=== PATIENT | female | born 1960 | race Caucasian/White ===

== ENCOUNTER 2017-02-26 10:46 | Outpatient (CLI) | payer OTHER ==
--- NOTE | 2017-02-26 12:05 | MMO ---
BILATERAL SCREENING MAMMOGRAMS: Date: 02/26/17 Comparison made to prior exams from 2014 and 2015. This patient's mammogram was interpreted with the assistance of computer-aided detection. FINDINGS: Heterogeneously dense glandular pattern. No evidence of mass or distortion. No interval change noted. Recommend one year follow-up. IMPRESSION: BIRADS 1: Negative POS: ART[facility]
== END 2017-02-26 10:47 | disposition home or self-care (01) ==
LOC: MAMMO 10:46
PROVIDERS: ATTEND Obstetrics & Gynecology
DX: Z12.31 Encounter for screening mammogram for malignant neoplasm of breast (principal)
CPT/HCPCS: 77067; G0202

== ENCOUNTER 2018-04-10 12:07 | Outpatient (CLI) | payer OTHER | END 2018-04-10 12:08 | disposition home or self-care (01) | LOC: BICMAMMO 12:07 | PROVIDERS: ATTEND Obstetrics & Gynecology | DX: Z12.31 Encounter for screening mammogram for malignant neoplasm of breast (principal); Z80.3 Family history of malignant neoplasm of breast | CPT/HCPCS: 77063; 77067 ==

== ENCOUNTER 2019-05-10 10:22 | Outpatient (CLI) | payer OTHER ==
--- NOTE | 2019-05-10 11:36 | BD ---
EXAM: Bone densitometry using DEXA HISTORY: 58 yo female. Screening for postmenopausal osteoporosis FINDINGS: L1--bone mineral density 0.710 g/sq cm; T score -2.5 ; Z score -1.5 L2--bone mineral density 0.821 g/sq cm; T score -1.9 ; Z score -0.7 L3--bone mineral density 0.839 g/sq cm; T score -2.2 ; Z score -1.0 L4--bone mineral density 0.827 g/sq cm; T score -2.1 ; Z score -0.9 Total L1-L4--bone mineral density 0.801 g/sq cm; T score -2.2 ; Z score -1.1 Left femoral neck--bone mineral density0.662; T score -1.7 ; Z score -0.6 Total proximal left femur--bone mineral density 0.953; T score 0.1 ; Z score 0.9 There has been an interval reduction of 8% in the BMD of the lumbar spine and a reduction of 4.1% i n the BMD of the proximal femur since the previous study of 07/30/2016. The 10 year fracture risk for a major osteoporotic fracture is 6.7% and for a hip fracture is 0.6%. IMPRESSION: Osteopenia
--- NOTE | 2019-05-13 13:28 | MMO ---
Bilateral MAMMO Bilat Screen [facility]. CLINICAL HISTORY: Patient is 58 years old and is seen for screening. The patient has the following family history of breast cancer: maternal aunt, at age 90, GREAT. The patient has no personal history of cancer. VIEWS: The views performed were: bilateral craniocaudal with tomosynthesis; bilateral mediolateral oblique with tomosynthesis; and right mediolateral oblique. FILMS COMPARED: The present examination has been compared to prior imaging studies performed at [facility] [place] on 02/11/2015, 01/25/2016 and 04/10/2018. This study has been interpreted with the assistance of computer-aided detection. MAMMOGRAM FINDINGS: The breasts are heterogeneously dense, which could obscure a lesion on mammography. There are no suspicious masses, suspicious calcifications, or new areas of architectural distortion. IMPRESSION: THERE IS NO MAMMOGRAPHIC EVIDENCE OF MALIGNANCY. A ROUTINE FOLLOW-UP MAMMOGRAM IN 1 YEAR IS RECOMMENDED. THE RESULTS OF THIS EXAM WERE SENT TO THE PATIENT. ACR BI-RADS Category 1 - Negative MAMMOGRAPHY NOTE: 1. A negative mammogram report should not delay a biopsy if a dominant of clinically suspicious mass is present. 2. Approximately 10% to 15% of breast cancers are not detected by mammography. 3. Adenosis and dense breasts may obscure an underlying neoplasm. Reported by: SOFIA DE SANTIAGO MD Electonically Signed: [id number]
== END 2019-05-10 10:23 | disposition home or self-care (01) ==
LOC: BICMAMMO 10:22
PROVIDERS: ATTEND Obstetrics & Gynecology
DX: Z12.31 Encounter for screening mammogram for malignant neoplasm of breast (principal); M85.89 Other specified disorders of bone density and structure, multiple sites; G35 Multiple sclerosis; Z87.39 Personal history of other diseases of the musculoskeletal system and connective tissue; Z80.3 Family history of malignant neoplasm of breast
CPT/HCPCS: 77063; 77067; 77080

== ENCOUNTER 2020-05-11 14:23 | Outpatient (CLI) | payer OTHER | END 2020-05-11 14:24 | disposition home or self-care (01) | LOC: BICMAMMO 14:23 | PROVIDERS: ATTEND Obstetrics & Gynecology | DX: Z12.31 Encounter for screening mammogram for malignant neoplasm of breast (principal); Z80.3 Family history of malignant neoplasm of breast | CPT/HCPCS: 77063; 77067 ==

== ENCOUNTER 2021-05-15 13:06 | Outpatient (CLI) | payer OTHER | END 2021-05-15 13:07 | disposition home or self-care (01) | LOC: BICMAMMO 13:06 | PROVIDERS: ATTEND Obstetrics & Gynecology | DX: Z12.31 Encounter for screening mammogram for malignant neoplasm of breast (principal); Z80.3 Family history of malignant neoplasm of breast | CPT/HCPCS: 77063; 77067 ==

== ENCOUNTER 2021-09-21 14:27 | Outpatient (CLI) | payer OTHER | END 2021-09-21 14:28 | disposition home or self-care (01) | LOC: BICMAMMO 14:27 | DX: M85.9 Disorder of bone density and structure, unspecified (principal); G35 Multiple sclerosis; Z79.899 Other long term (current) drug therapy; M81.0 Age-related osteoporosis without current pathological fracture | CPT/HCPCS: 77080 ==

== ENCOUNTER 2022-05-27 13:19 | Outpatient (CLI) | payer OTHER | END 2022-05-27 13:20 | disposition home or self-care (01) | LOC: BICMAMMO 13:19 | PROVIDERS: ATTEND Obstetrics & Gynecology | DX: Z12.31 Encounter for screening mammogram for malignant neoplasm of breast (principal); Z80.3 Family history of malignant neoplasm of breast | CPT/HCPCS: 77063; 77067 ==

== ENCOUNTER 2023-06-04 12:53 | Outpatient (CLI) | payer OTHER | END 2023-06-04 12:54 | disposition home or self-care (01) | LOC: BICMAMMO 12:53 | PROVIDERS: ATTEND Obstetrics & Gynecology | DX: Z12.31 Encounter for screening mammogram for malignant neoplasm of breast (principal); Z80.3 Family history of malignant neoplasm of breast | CPT/HCPCS: 77063; 77067 ==